=== PATIENT | male | born 1945 | race Caucasian/White ===

== ENCOUNTER → 2018-07-24 | Outpatient (CLI) | payer MEDICARE ==
--- NOTE | 2018-07-24 15:16 | Diagnostic Imaging Report ---
EXAM: CT Chest WITHOUT contrast 07/24/2018 8:38 AM INDICATION: \[id number] \S\0850 \S\SOLITARY NODULE OF LUNG/BRONCHITIS COMPARISON: None TECHNIQUE: Chest was scanned utilizing a multidetector helical scanner from the lung apex through the level of the adrenal glands without administration of IV contrast. Absence of intravenous contrast decreases sensitivity for detection of lymphadenopathy and vascular pathology. Coronal and sagittal reformations were obtained. Routine protocol was performed. IV CONTRAST: None COMPLICATIONS: None RADIATION DOSE: Total DLP: 558.4 mGy*cm Estimated effective dose: (DLP x 0.015 x size factor) mSv CTDIvol has been reviewed. It is below the limits set by the Radiation Protocol Committee (RPC). FINDINGS: LINES/ TUBES: None. LUNGS AND AIRWAYS: Advanced bilateral centrilobular and paraseptal emphysema. Mild bilateral central bronchiectasis with peribronchial wall thickening. No consolidations. Bandlike scarring in the lingula and subpleural region of the left lower lobe. Indeterminate 13 mm mildly spiculated solid pulmonary nodule in the right upper lobe on series 3, image 44. No satellite nodules. 5 mm subpleural solid nodule in the contralateral left lower lobe on series 3, image 95. PLEURA: The pleural spaces are clear. HEART AND MEDIASTINUM: The thyroid gland is normal. Few small noncalcified lymph nodes measuring up to 10 mm in the right lower paratracheal region (4R). No lymphadenopathy in the bilateral hilar on limited evaluation. Ectasia of the ascending thoracic aorta (4.2 cm). Atherosclerotic calcifications of the thoracic aorta and proximal arch branch vessels. The heart is normal in size. There is no pericardial effusion. Diffuse coronary artery calcifications, status post CABG. The main pulmonary artery and major branches are enlarged. Main pulmonary artery measures 3.3 cm, right pulmonary artery, 3.0 cm, and left pulmonary arteries, 2.8 cm, respectively. These findings are consistent with pulmonary hypertension. UPPER ABDOMEN: Cholecystectomy. Mild thickening of both adrenal glands without discrete nodule. Atrophy of the pancreas. BONES: Intact median sternotomy wires. Mild multilevel degenerative changes of the thoracic spine. SOFT TISSUES: Unremarkable. IMPRESSION: 1. Advanced bilateral emphysema and mild bilateral bronchiectasis with peribronchial wall thickening. 2. Indeterminate 13 mm right upper lobe mildly spiculated pulmonary nodule is suspicious for malignancy. Prior imaging not available for comparison. Follow-up recommendation according to 2017 Fleischner Society Guidelines: Consider CT at 3 months, PET/CT, or tissue sampling Reference Guidelines: http://pubs.rsna.org/doi/pdf/10.1148/radiol.7978169023 Signed by: Dr. Sheryl Chavez M.D. on 07/24/2018 3:12 PM
== END ==
LOC: CT 08:28
PROVIDERS: ATTEND Internal Medicine Critical Care Medicine
DX: J18.9 Pneumonia, unspecified organism (principal); J90 Pleural effusion, not elsewhere classified; J42 Unspecified chronic bronchitis; J47.9 Bronchiectasis, uncomplicated; J30.9 Allergic rhinitis, unspecified; R91.1 Solitary pulmonary nodule; J44.9 Chronic obstructive pulmonary disease, unspecified
CPT/HCPCS: 71250

== ENCOUNTER → 2018-09-17 | Outpatient (CLI) | payer MEDICARE ==
--- NOTE | 2018-10-04 04:57 | Polysomnography ---
DATE OF STUDY: DIAGNOSTIC POLYSOMNOGRAM HISTORY: Mr. Stiles is a 73-year-old gentleman with significant insomnia and excessive daytime sleepiness. Patient has a past medical history of systolic congestive heart failure, cellulitis, COPD, dyslipidemia, hypertension, and chronic hypoxemia. CURRENT MEDICATIONS: Aspirin, clopidogrel, fluticasone, Lasix, levothyroxine, metoprolol, Anoro Ellipta inhaler, and ProAir. Patient has [place] Sleepiness Scale score of 0. BMI of 26.6. Patient presents for a diagnostic polysomnogram. FINDINGS: Polysomnogram revealed total sleep time of 138.5 minutes with sleep efficiency of 32.3%. Sleep onset latency was achieved in 49 minutes,. There was no REM sleep noted on this study. Stage N1 was 57%, N2 was 43%, N3 was 0%, and REM sleep was 0% of total sleep time. Intermittent snoring was noted. A total of 1 mixed apnea, 11 hypopneas were noted for an apnea-hypopnea index of 5.2 events per hour. Most of the study was in supine position or in a position where his back was rotated between side and supine, but he seemed mostly supine. The lowest oxygen saturation noted was 85%. A total of 242 periodic limb movements in sleep were noted for a periodic limb movement index of 104.8 events per hour. There were some periodic limb movements while awake that were also noted. EKG by single lead demonstrated lots of bigeminy runs and a few isolated PVCs scattered throughout the study. INTERPRETATION: This was an abnormal polysomnogram due to the presence of; 1. Mild obstructive sleep apnea. This is supported by oxygen desaturations, snoring and the increased apnea-hypopnea index. Multiple factors can be contributory such as thyroid disease and structural/obstructive abnormalities in the upper airway. An evaluation and management of these factors associated with sleep apnea would be beneficial. A second-night polysomnogram for CPAP titration should be considered after initial interventions to address the limb movements first-- or at least the limb movement issues that occur when awake. 2. Periodic limb movements in sleep. In an appropriate clinical setup (such as a history sleep disturbance or complaint of daytime fatigue or sleepiness) this could be consistent with periodic limb movement disorder of sleep (PLMD). However, because of the snoring and obstructive apnea, some of these leg movements may be secondary to respiration event-related arousals. However, due to extent and suggestion of an underlying limb movement issue, consideration should be to address any awake symptoms first and then to subsequently send patient for CPAP titration. PLMD can be associated with conditions such as restless leg syndrome, iron deficiency anemia, uremia, electrolyte imbalance such as hypomagnesemia, peripheral neuropathy, and use of some medicines. An evaluation and management of these factors may be helpful. MD ELISE Dash Certified in Sleep Medicine Job#: [id number] VAS MTDD
== END ==
LOC: SLEEP 19:28
PROVIDERS: ATTEND Internal Medicine Critical Care Medicine
DX: G47.33 Obstructive sleep apnea (adult) (pediatric) (principal)
CPT/HCPCS: 95810

== ENCOUNTER → 2019-07-15 | Outpatient (CLI) | payer MEDICARE ==
--- NOTE | 2019-07-15 09:25 | Diagnostic Imaging Report ---
CT of the chest, without contrast. History: Bronchitis, bronchiectasis, hypoxemia. Comparison: 07/24/2018. Technique: Multidetector CT scanning of the chest was performed from the level of the apices to the upper abdomen without contrast. Coronal and sagittal multiplanar reformations were obtained. RADIATION DOSE: Total DLP: 552.84 mGy*cm Dose modulation, iterative reconstruction, and/or weight based adjustment of the mA/kV was utilized to reduce the radiation dose to as low as reasonably achievable. FINDINGS: The thyroid and remaining visualized structures within the base of the neck demonstrate no significant abnormalities. There is stable ectasia of the thoracic aorta measuring up to 4.2 cm, unchanged from the prior examination. Atherosclerotic calcifications are identified within the aorta and branch vessels including the coronary arteries. Post surgical changes from prior median sternotomy and CABG noted. There is stable prominence of the main and left pulmonary arteries which can be seen in the setting of pulmonary hypertension. There is no abnormal axillary, mediastinal, or hilar lymph node enlargement. Normal-sized mediastinal lymph nodes again noted. The trachea and proximal airways are patent. Again identified are advanced centrilobular and paraseptal emphysematous changes. There is persistent bronchiectasis, most prominent within the left lower lobe. There is stable bandlike atelectasis/scarring within the lingula and left lower lobe. There is a stable spiculated pulmonary nodule within the right upper lobe measuring 1.3 x 1.1 cm, previous 1.3 x 1.1 cm. There is no evidence for consolidation, pneumothorax, new mass/nodule, or pleural effusion. There are postsurgical changes from prior cholecystectomy. Involutional changes noted of the pancreas. The remaining visualized upper abdominal contents are unremarkable. There are degenerative changes of the thoracic spine. There is no evidence for acute fracture or destructive process. The extrathoracic soft tissues are unremarkable. IMPRESSION: 1. Stable appearing 1.3 cm spiculated right upper lobe pulmonary nodule again identified. Although this lesion is stable in size from the prior examination from 07/24/2018, a slow-growing malignant process is not excluded. Consider further evaluation with PET/CT if not already performed. 2. Advanced emphysematous changes. Stable mild/moderate bronchiectasis. Signed by: Dr. Parth Hoang MD on 07/15/2019 9:22 AM
== END ==
LOC: CT 08:25
PROVIDERS: ATTEND Internal Medicine Critical Care Medicine
DX: J30.9 Allergic rhinitis, unspecified (principal); J47.9 Bronchiectasis, uncomplicated; J42 Unspecified chronic bronchitis; J44.9 Chronic obstructive pulmonary disease, unspecified; J90 Pleural effusion, not elsewhere classified; R91.1 Solitary pulmonary nodule; R09.02 Hypoxemia; G47.33 Obstructive sleep apnea (adult) (pediatric)
CPT/HCPCS: 71250